=== PATIENT | female | born 1965 | race Hispanic/Latino ===

== ENCOUNTER 2022-07-28 00:45 | Emergency (ER) | payer SELFPAY ==
[~2022-07-28] VITALS: Ht 149.9 cm; Wt 113.4 kg
[2022-07-28] MEDS ORDERED: ACETAMINOPHEN 325 MG TAB PO STA (00:55)
[2022-07-28] MEDS ORDERED: FENTANYL CITRATE/PF 100MCG/2 ML INJ IV ONE (04:45)
[2022-07-28] MEDS ORDERED: FENTANYL CITRATE/PF 100MCG/2 ML INJ ONE (04:56)
[2022-07-28] MEDS ORDERED: ULTRAM 50MG50 MG PO (05:29)
[2022-07-28 05:38] VITALS: BP 120/86
== END 2022-07-28 05:41 | disposition home or self-care (01) ==
LOC: ER 01:05
DX: M25.562 Pain in left knee (principal); R50.9 Fever, unspecified; E11.9 Type 2 diabetes mellitus without complications; Z20.822 Contact with and (suspected) exposure to COVID-19
CPT/HCPCS: 73562; 73700 ×2; 93005; 93971; 99284; J3010; U0002